=== PATIENT | female | born 1980 | race Caucasian/White ===

== ENCOUNTER 2022-06-02 08:09 | Outpatient (CLI) | payer OTHER | END 2022-06-02 08:10 | disposition home or self-care (01) | LOC: CSHMAMMO 08:09 | PROVIDERS: ATTEND Obstetrics & Gynecology | DX: Z12.31 Encounter for screening mammogram for malignant neoplasm of breast (principal); Z80.3 Family history of malignant neoplasm of breast | CPT/HCPCS: 77063; 77067 ==

== ENCOUNTER 2023-06-06 10:01 | Outpatient (CLI) | payer OTHER | END 2023-06-06 10:02 | disposition home or self-care (01) | LOC: CSHMAMMO 10:01 | PROVIDERS: ATTEND Obstetrics & Gynecology | DX: Z12.31 Encounter for screening mammogram for malignant neoplasm of breast (principal); Z80.3 Family history of malignant neoplasm of breast | CPT/HCPCS: 77063; 77067 ==

== ENCOUNTER 2025-06-11 12:49 | Outpatient (CLI) | payer BC | END 2025-06-11 12:50 | disposition home or self-care (01) | LOC: CSHMAMMO 12:49 | PROVIDERS: ATTEND Obstetrics & Gynecology | DX: Z12.31 Encounter for screening mammogram for malignant neoplasm of breast (principal); Z80.3 Family history of malignant neoplasm of breast | CPT/HCPCS: 77063; 77067 ==

== ENCOUNTER 2025-07-31 08:27 | Outpatient (CLI) | payer BC | END 2025-07-31 08:28 | disposition home or self-care (01) | LOC: CSHMRI 08:27 | PROVIDERS: ATTEND Obstetrics & Gynecology | DX: R92.333 Mammographic heterogeneous density, bilateral breasts (principal) | CPT/HCPCS: C8908 ==